=== PATIENT | female | born 1940 | race Caucasian/White ===

== ENCOUNTER 2024-06-26 09:27 | Inpatient (IN) | payer OTHER, SELFPAY ==
[2024-06-23] VITALS (14 sets, daily range): BP systolic 91–140; BP diastolic 39–82; BMI 29.8
[2024-06-23 18:30] LABS: % Basophils 0.5 % (0-2); % Eosinophils 1.8 % (0-6); % Immature Granulocytes 0.5 % (0-0.5); % Lymphocytes 17.3 % (20.5-51.1); % Monocytes 11.6 % (1.7-9.3); % Neutrophils 68.3 % (42.2-75.2); Absolute Eosinophils 0.2 10^3/uL (0-0.7); Absolute Lymphocytes 1.5 10^3/uL (1.2-3.4); Hematocrit 27.6 % (37.0-47.0); Mean Corp Hgb Conc. 32.6 g/dL (33.0-37.0); Mean Corpuscular Hgb 26.4 pg (27.0-31.0); Mean Corpuscular Volume 80.9 fL (81.0-99.0); Nucleated Red Blood Cells % 0 %; Platelet Count 278 10^3/uL (130-400); Red Blood Cell Count 3.41 10^6/uL (4.20-5.40); Red Cell Dist. Width 15.5 % (11.5-14.5); White Blood Cell Count 8.8 10^3/uL (4.8-10.8)
[2024-06-23 18:54] LABS: Troponin I < 0.012 ng/ml
[2024-06-23 18:59] LABS: ALT (SGPT) < 10 U/L (0-35); AST (SGOT) 20 U/L (14-36); Albumin 3.7 g/dl (3.5-5.0); Alkaline Phosphatase 85 U/L (38-126); Blood Urea Nitrogen 33 mg/dl (7-17); Calcium 9.5 mg/dl (8.4-10.2); Carbon Dioxide 28 mmol/L (22-30); Chloride 101 mmol/L (98-107); Estimated Creatinine Clearance 37 ml/min; Glucose 116 mg/dl (70-99); Potassium 3.8 mmol/L (3.5-5.1); Sodium 139 mmol/L (135-145); Total Bilirubin 0.5 mg/dl (0.2-1.3); Total Protein 6.4 g/dl (6.3-8.2); eGFR 44.36
--- NOTE | 2024-06-23 19:01 | ED.GENMED ---
History of Present Illness
General
Chief Complaint: Change Level of Consciousness
Source: patient and family
Exam Limitations: none
Time Seen by Provider: 06/23/24 18:28
Nursing documentation reviewed up to this point in time: agreed with
History of Present Illness
History of Present Illness:
Patient is an 83-year-old female past medical history of hypertension A-fib on Eliquis presents to the ER for evaluation of syncopal episode. Patient was sitting outside on a shaded deck with family when she was not responding and started to vomit.
Family reports it took a couple minutes before she came to. She was incontinent of diarrhea stool which they were not aware of initially. She presents to the ER awake alert in no acute distress she denies any headache now she feels tired. She
remembers sitting eating and simply reports she felt lightheaded. She denies any chest pain or feeling any headache. She denies any headache chest pain now. She denies any recent illness fever chills.
Past History
Past History
ED Past Medical History: HTN and Other
Social History
Tobacco: Non-smoker
Alcohol: Occasional
Personal:
Living: with family
Employment: Retired
Review of Systems
Review of Systems
Allergies reviewed?: Yes
All Other Systems: ROS reviewed and negative except as documented in HPI and ROS
Constitutional: Reports no symptoms; Denies fever, fatigue or chills
Respiratory: Reports no symptoms
Cardiac: Reports syncope; Denies chest pain
ABD/GI: Reports nausea, vomiting and diarrhea; Denies abdominal pain
: Reports no symptoms
Musculoskeletal: Reports no symptoms
Skin: Reports no symptoms
Neurological: Reports no symptoms
Hematologic/Lymphatic: Reports no symptoms
Psychiatric: Reports no symptoms
Phy Exam
General Physical Exam
General Presentation: no apparent distress
General age: appears stated age
General Skin: warm and dry
General Habitus: elderly
General Mental: alert
General Hydration: dry mucous membranes
Cardiovascular Exam
Cardiovascular Exam: irregularly irregular
Pulmonary Exam
Pulmonary Exam: lungs clear and no respiratory distress
Gastrointestinal Exam
Gastrointestinal Exam: normal bowel sounds, non tender, soft and other (brown stool tr heme positive )
Neurological Exam
Neurological Exam: alert and oriented x3
Musculoskeletal Exam
Musculoskeletal Exam: full ROM
Skin Exam
Skin Exam: normal color and warm/dry
Psychiatric Exam
Psychiatric Exam: normal mood/affect
Course
Orders/Labs/Results
Orders:
Orders
06/23/24 Breakfast
Cholesterol Lowering
At Your Request: Full Participation
Does patient need a safe tray?: No
Cholesterol Lowering: Sodium, 2 Gram
06/23/24 18:16
Electrocardiogram (*1) Urgent
Reason for Study: Syncope
EKG- Treatment ONCE
06/23/24 18:25
Complete Blood Count/With Diff Urgent
Comprehensive Metabolic Panel Urgent
Troponin I Urgent
06/23/24 19:00
CT Head W/o Iv Contrast Urgent
Comment:
Reason For Exam: syncopal episode
Straight cath- Treatment ONCE
06/23/24 19:09
UA Reflex to Culture [Urinalysis Reflex To Culture] Urgent
Date Specimen was Collected: 06/23/24
Time Specimen was Collected: 19:08
Urine Microscopic Reflex Cult Urgent
06/23/24 19:40
0.9% Sodium Chloride 500 ml [Nss] 500 ml IV BOLUS
06/23/24 21:35
COVID-19 Antigen Urgent
Source: Nasal Swab
Troponin I Urgent
06/23/24 22:48
Admit/Transfer Patient As Directed
Co-Sign Provider:
Level of Care: Observation services
Assign to:: Telemetry
Physician / Group: Cruz
Diagnosis: Syncope
Reason for Telemetry: Syncope
Date to Stop Telemetry: 06/25/24
Time to Stop Telemetry: 11:00
Code Status As Directed
Resuscitation Status: Full Code
PRN Pain Medication Management As Directed
May give lesser potent ordered pain med per pt: Yes
preference::
Protocol:: Medication orders for pain may be administered in a
manner that supports deferring to patient preference
when the pt is:
- Requesting an ordered lesser potent pain medication.
Least to most potent pain medications are defined
as: acetaminophen < NSAID < tramadol < opioids
(morphine, oxycodone, hydromorphone).
- Requesting a lesser dose of the same medication IF
ORDERED.
- Requesting a less intrusive route of administration
if both routes are prescribed by the provider (PO <
IV).
06/23/24 23:58
Troponin I Q6H
0.9% Sodium Chloride 1000 ml [Nss] 1,000 ml IV 80 mls/hr
Acetaminophen [Tylenol] 650 mg PO Q4HPRN PRN
Bisacodyl [Dulcolax] 10 mg RECTAL C27RPRH PRN
Docusate W/Senna [Senokot-S] 1 tablet PO BIDPRN PRN
Polyethylene Glycol Powder [Miralax] 17 grams PO DAILYPRN PRN
06/23/24 23:58
CARDIOLOGY CONSULT Routine
Consulting Provider: Mamta Rod
Was physician already notified: No
Reason for consult: Syncope with a history of A-fib
Consult Notification Routine
Specialty to Notify: Cardiology
Activity As Directed
Activity Level: Out of Bed-Early Mobility
Orthostatic Vital Signs As Directed
Orthostatic VS Frequency: q8h
Stool for occult blood [Hemetest Stools] As Directed
Vital Signs As Directed
Frequency: Per unit guidelines
06/24/24 05:58
Troponin I Q6H
06/24/24 06:00
Basic Metabolic Panel IN AM
Complete Blood Count/No Diff IN AM
Ferritin IN AM
Iron IN AM
Magnesium IN AM
TSH IN AM
Total Iron Binding IN AM
Vitamin B12 IN AM
06/24/24 08:00
Allopurinol [Zyloprim] 100 mg PO DAILY
Colchicine 0.6 mg PO DAILY
Lisinopril [Zestril] 20 mg PO DAILY
Metoprolol Xl [Toprol Xl] 100 mg PO DAILY
Rivaroxaban [Xarelto] 20 mg PO DAILY
06/24/24 11:58
Troponin I Q6H
06/25/24 11:00
DC Protocol for Telemetry ONCE
Abnormal Lab Results
06/23/24 06/23/24
18:25 19:09
RBC 3.41 L 10^6/uL
(4.20-5.40)
Hgb 9.0 L g/dL
(12.0-16.0)
Hct 27.6 L %
(37.0-47.0)
MCV 80.9 L fL
(81.0-99.0)
MCH 26.4 L pg
(27.0-31.0)
MCHC 32.6 L g/dL
(33.0-37.0)
RDW 15.5 H %
(11.5-14.5)
Absolute Monos (auto) 1.0 H 10^3/uL
(0.1-0.6)
Lymphocytes % 17.3 L %
(20.5-51.1)
Monocytes % 11.6 H %
(1.7-9.3)
BUN 33 H mg/dl
(7-17)
Creatinine 1.2 H mg/dL
(0.6-1.0)
Glucose 116 H mg/dl
(70-99)
Urine Bilirubin 1+ A
(Negative)
Leukocyte Esterase Rfl Trace A
(Negative)
06/23/24 18:25
06/23/24 18:25
Vital Signs
Initial and Last Documented VS:
Initial Vital Signs
BP
91/58
06/23/24 18:14
Last Documented Vital Signs
Temp Pulse Resp BP Pulse Ox
98.0 F 69 20 140/67 95
06/23/24 23:59 06/23/24 23:59 06/23/24 23:59 06/23/24 23:59 06/23/24 23:59
Rn Triage consulted with Physician
Rn Triage consulted with physician?: Yes
Name of Physician Consulted: Jennifer
MDM/Problems Addressed
MDM/Problems Addressed:
Patient is an 83-year-old female who was sitting on initiated deck and had a witnessed syncopal episode associate with vomiting and bowel incontinence by family. Patient presents to the awake alert she complains of feeling very tired. She does
remember sitting eating and remembers feeling lightheaded. She denies any associated chest pain or headache. She denies any chest pain or headache upon arrival. She does appear dehydrated. She denies any recent fever chills she is afebrile here
with a normal white count. Her BUN is elevated at 33 she is dry on exam. Her hemoglobin is 9.0 prior hemoglobin was last from 2014 which was 13.7. On exam patient rectal shows brown stool trace heme positive. She was given 1-1/2 L of fluid
however still feels tired and blood pressure in the 90s. No obvious UTI. Negative COVID. With continued symptoms of fatigue , hypertension and not feeling back to normal we will adm
*Radiology
Radiology exam reviewed: radiology read reviewed
*Pulse Oximetry
Patient hypoxic: no
*EKG
Heart Rate: 52
Rate: bradycardiac
Rhythm: a-fib
*Critical Care Note
Total Time (30-74mins, 75-104mins- exclusive of procedures): Not Applicable
ED Attending Note
-
Portions of this chart may have been created with voice recognition software.� Occasional wrong word or��sound alike� substitutions may have occurred due to the inherent limitations of voice recognition software.
Discharge Plan
Departure
Patient Disposition: Admit
Date of Disposition: 06/23/24
Time of Disposition: 22:14
Admit to: Telemetry
Admit to doctor: hospitalist
Presentation/result/management discussed w/ accepting MD/DO: Hospitalist
Patient with high blood pressure during this ER visit?: No
Condition: Fair
Covid-19: Not Applicable
Discharge Problem:
Syncope, Acute hypotension
Interventions
Interventions:
*Risk Screen - Suicide Last Done: 06/23/24 18:19
*General Assessment Last Done: 06/23/24 18:19
*Neglect/Abuse Screening Last Done: 06/23/24 18:19
*ED COVID-19 Vaccine History Last Done: 06/23/24 18:19
*Nursing Disposition Last Done: 06/24/24 00:00
ED- Cardiac Assessment Last Done: 06/23/24 18:21
ED- Neurological Assessment Last Done: 06/23/24 18:21
ED-Psychological Assessment Last Done: 06/23/24 18:21
ED- Pulmonary Assessment Last Done: 06/23/24 18:21
Discharge Date and Time
Discharge Date/Time: 06/24/24 00:01
[2024-06-23 19:14] LABS: Urine Albumin Negative (Neg - Trace); Urine Bilirubin 1+ (Negative); Urine Character Clear (Clear); Urine Color Yellow; Urine Glucose Negative (Negative); Urine Ketone Negative (Negative); Urine Leukocyte Trace (Negative); Urine Nitrite Negative (Negative); Urine Occult Blood Negative (Negative); Urine Specific Gravity 1.025 (<1.030); Urine Urobilinogen 1+ (Neg - 1+)
[2024-06-23 19:28] LABS: Urine Red Blood Cell 0-2 /HPF (0-2)
[2024-06-23] MEDS: NSS 500 IV (19:41)
[2024-06-23 22:01] LABS: COVID-19 Antigen Negative (Negative)
[2024-06-23 22:07] LABS: Troponin I < 0.012 ng/ml
--- NOTE | 2024-06-23 22:23 | HPS.HSE ---
Family Physician
-
Family Physician: Jesus Alberto Merchant
Chief Complaint
-
Syncope
History of Present Illness
83-year-old female with history of A-fib anticoagulated with Eliquis and recently have a gout flareup and she was started on allopurinol and colchicine which she started 4 days ago, presented to the hospital with the daughter and son after had a
witnessed syncopal episode while at a family gathering, she that she was sitting on the back porch which has been initiated and have ventilation and she was not feeling hot at all, while she was eating and talking to the grandson, that the last
thing she remembered this family noticed she had some unresponsive episode lasted 3 to 4-minute and she gradually came around after one of the [id number] is a nurse tapped on her, and the patient had no recollection of the event and there was
no seizure-like activity witnessed look like patient had an episode of nonbloody vomiting as well, she feels she is drinking enough but she looks dry and dehydrated, and after the event she had an episode of loose stool. Denies any chest pain or
shortness of breath or palpitation or any cough or congestion or any weakness or numbness in extremities.
Denies any bleeding event or change in stool or urine color.
Looking at the archive the last time we have in the system her hemoglobin was around 13 today is 9 and she had a blood work recently in 2 weeks ago and was told by her primary care everything looks good. The daughter and son did not get the record
of her recent blood work tomorrow.
She is awake, alert and oriented x 3 hold appropriate conversation, denies any particular complaint currently accompanied by son and daughter at the bedside
Medical History
Past Medical History
Past Medical History: Reports Other
Additional Past Medical History:
Past medical history Reviewed:
Gout
Hypertension
Breast cancer
A-fib anticoagulated on Xarelto
Social history: Lives alone, no smoking or alcohol use. And she is independent.
Family history: Reviewed and noncontributory
Past Surgical History: Reports Other
Social History
Unable to obtain full social history at this time due to: Other
Employment: Other
Family History
Family History: Other
Allergies / Home Medications
Allergies reflects when Allergies were last updated in [facility].
Home Medications with original date entered in [facility]
Allergy/Medication List:
Allergies
Allergy/AdvReac Type Severity Reaction Status Date / Time
No Known Drug Allergies Allergy Unknown Verified 11/29/14 04:35
Home Medications
allopurinol 100 mg tablet 100 mg PO DAILY 11/29/14
anastrozole 1 mg tablet 1 mg PO DAILY 11/29/14
cholecalciferol (vitamin D3) 25 mcg (1,000 unit) tablet (Vitamin D3) 1,000 unit PO DAILY 11/29/14
lisinopril 20 mg tablet 20 mg PO DAILY 11/29/14
metoprolol succinate 100 mg tablet,extended release 24 hr 100 mg PO DAILY 11/29/14
rivaroxaban 20 mg tablet (Xarelto) 20 mg PO DAILY 11/29/14
aspirin 81 mg tablet,delayed release 81 mg PO DAILY ##0 12/01/14
atorvastatin 20 mg tablet 20 mg PO QPM ##30 12/01/14
Review of Systems
-
A 12 point ROS was completed and negative except as noted: Yes
Physical Exam
Vital Signs
Vital Signs
Temp Pulse Resp BP Pulse Ox
98.2 F 76 18 94/66 97
06/23/24 18:17 06/23/24 22:00 06/23/24 22:00 06/23/24 22:00 06/23/24 22:03
physical exam:
General: Awake, alert and oriented x3, not in distress and holds appropriate conversation.
HEENT: No active discharge, ecchymosis or bruising, dry lips, tongue and mucous membrane.
Eyes: No discharge or red conjunctiva, no nystagmus, pupils are reactive and equal
Neck:Supple, no JVD no bruit no goiter.
Respiratory: Normal AP contour and diameter, normal chest wall movement, normal respiratory effort, no respiratory distress,
Lungs: Good air entry bilaterally, no wheezing or rhonchi, no rales or crackles
Heart: S1, S2 regular, normal rate, no added sound.
Gastrointestinal: Positive bowel sounds, soft, nontender, no guarding or rigidity or organomegaly
Musculoskeletal: , no chest wall abnormality or tenderness. All joints and extremities have good range of motion, no muscle tenderness or any joint swelling or tenderness.
Extremities: No pitting edema, good peripheral pulses, good range of motion
Skin: Warm and dry, no ulceration, normal color.
Neurological: Awake, alert and oriented x3, no facial droop, , speech clear and comprehensive, good muscle tone, moves extremities freely
Psychiatric: Normal mood, normal thought and judgment, normal affect,
Physical Exam
General: Other
Laboratory Results
-
06/23/24 18:25
06/23/24 18:25
Laboratory Results
Total Bilirubin 0.5 mg/dl (0.2-1.3) 06/23/24 18:25
AST 20 U/L (14-36) 06/23/24 18:25
ALT < 10 U/L (0-35) 06/23/24 18:25
Alkaline Phosphatase 85 U/L (38-126) 06/23/24 18:25
Troponin I < 0.012 ng/ml 06/23/24 21:35
CT head:
No acute intracranial abnormality noted.
Global parenchymal volume loss with sequelae of severe small vessel ischemic disease.
EKG show atrial fibrillation with slow ventricular rate) 52, QTc 390 normal axis otherwise no acute abnormality
Data Reviewed
-
CT Scan: Report Reviewed by me, Discussed with Patient and Discussed with Family
Lab Data: Labs Reviewed by me, Discussed with Patient and Discussed with Family
Old Records: Reviewed
Impression/Plan
-
IMPRESSION:
83-year-old female presented to the hospital after a witnessed syncopal episode, possibly related to vasovagal and dehydration while other causes including arrhythmia specially in the midst of the A-fib need to be considered.
Syncope, likely vasovagal and dehydration related while other causes need to be considered.
Cardiac monitoring
IV fluid
Orthostatic vital sign check
Cardiology consult, she had a history of the A-fib.
Check TSH
Cardiac enzyme
Continue metoprolol while hold HCTZ as she takes lisinopril HCTZ combination 20/25 mg.
Anemia: Last a lot of blood work was in 2014 in the system and hemoglobin was fine, patient denies bleeding event
She is on Xarelto
Had a blood work 2 weeks ago and she was told everything looks fine but does not know exactly her hemoglobin.
Rectal blood stool
Iron panel
Recheck lab
Diet regular bring the record of her recent blood work and could be addressed accordingly.
History of A-fib:
Rate controlled
On Toprol 100 mg daily
Monitor heart rate
Continue Xarelto.
Elevated creatinine: Likely secondary to dehydration as meantime within of the baseline
IV fluid
Recheck
Gout: Recently had a attack and was given a week course of prednisone and on allopurinol and colchicine,
Continue colchicine
Allopurinol 100 daily
No evidence of acute gout currently
All discussed with the patient and the family in detail and expressed understanding
CODE STATUS full code
DVT prophylaxis is Xarelto
All the medication reconciled with the patient and the family as they have all the bottles with him.
[2024-06-24] VITALS (8 sets, daily range): BP systolic 103–140; BP diastolic 42–67; PULSE 66–87; BMI 29.0
[2024-06-24] MEDS: NSS 1000 IV ×2 (00:24→13:14)
[2024-06-24 01:17] LABS: Troponin I 0.012 ng/ml
--- NOTE | 2024-06-24 01:19 | PTCARENOTE ---
Received pt from ER at 0000. AAOx3, VSS. Pt able to stand and pivot from stretcher to bed. Oriented to room, call johnson and plan of care.
[2024-06-24 06:53] LABS: Hematocrit 25.1 % (37.0-47.0); Hemoglobin 8.1 g/dL (12.0-16.0); Mean Corp Hgb Conc. 32.3 g/dL (33.0-37.0); Mean Corpuscular Hgb 26.9 pg (27.0-31.0); Mean Corpuscular Volume 83.4 fL (81.0-99.0); Mean Platelet Volume 10.8 fL (7.4-10.4); Platelet Count 231 10^3/uL (130-400); Red Blood Cell Count 3.01 10^6/uL (4.20-5.40); Red Cell Dist. Width 15.4 % (11.5-14.5); White Blood Cell Count 8.1 10^3/uL (4.8-10.8)
[2024-06-24 07:15] LABS: Troponin I < 0.012 ng/ml
[2024-06-24 07:25] LABS: Blood Urea Nitrogen 31 mg/dl (7-17); Calcium 9.1 mg/dl (8.4-10.2); Carbon Dioxide 28 mmol/L (22-30); Chloride 103 mmol/L (98-107); Estimated Creatinine Clearance 37 ml/min; Glucose 91 mg/dl (70-99); Iron 40 ug/dl (37-170); Magnesium 1.7 mg/dl (1.6-2.3); Potassium 3.8 mmol/L (3.5-5.1); Sodium 139 mmol/L (135-145); eGFR 44.36
[2024-06-24 07:33] LABS: Percent Saturation 12 % (20-50); Total Iron Binding Capacity 332 ug/dl (265-497)
[2024-06-24 08:06] LABS: TSH 0.82 uIU/ml (0.47-4.68)
--- NOTE | 2024-06-24 08:08 | CON.CAR ---
Addendum entered and electronically signed by Azar Mayen MD 06/24/24 11:26:
I saw and examined the patient.
The PUMP HOUSE TECHNICIAN or PA's note was reviewed and I agree with the note.
Comment: General: Well developed, well nourished in NAD.
Neck: Supple, no JVD, HJR, carotids +2 B/L, no bruits bilaterally.
Heart: Non displaced PMI, Irreg, no murmurs, No S3, S4, no rubs.
Lungs: Clear to auscultation bilaterally, no wheeze, rhonchi, rubs bilaterally,
normal expiratory phase.
Abdomen: Normal bowel sounds, soft, non-tender, non-distended.
Extremities: No clubbing, cyanosis or edema bilaterally.
Neuro: Grossly nonfocal, awake, alert and oriented x3.
Isabella has a history of permanent atrial fibrillation on Xarelto, hypertension, gout, breast cancer. She presents with syncope. She was sitting at a table and was noted to be unresponsive for 3 to 4 minutes. Reportedly she had nausea at that
time as well. She had nonbloody vomiting afterwards as well as diarrhea. In the ER she was hypotensive with blood pressure of 91/58 with hemoglobin of 9.0 and a creatinine of 1.2 and was admitted. She denies any chest pain, short of breath,
palpitations. Of note she had a similar episode several years ago felt to be due to dehydration
Current event was likely due to vasovagal etiology. Will check echocardiogram. Continue to follow on monitor. Workup of anemia is in progress. Discussed with family in detail at bedside.
Addendum entered and electronically signed by STEWART Hutchinson 06/24/24 11:19:
rec'd records from Dr Riggs (primary enrollment management manager). Pt last seen in office 10/03/23. Known permanent afib. Was stable from CV standpoint at that time and no changes made to medical regimen.
Echo 08/05/22:
EF normal LV size, 60-65%
RV midly dilated, nl RV fxn
LA 4.0cm
mod MR
mild-mod TR, RVSP 50-55
AV sclerotic, mild AI
Asc aorta 3.7 cm
Original Note:
Consultation
Consultation Request
Date/Time Consultation Requested: 06/23/24, 23:58
Date/Time Consultation Performed: 06/24/24, 08:09
Requesting Provider: Silvia Arroyo MD
Performing Provider: STEWART Hutchinson/ Paul Espinosa MD
Reason for Consultation: syncope w/ h/o afib
Medical History
-
Chief Complaint: syncope
History of Present Illness:
HPI:
83 year old female with PMH permanent atrial fibrillation (on Xarelto), HTN, gout, breast CA s/p lumpectomy and radiation, who presents to the ER following a witnessed syncopal episode. She was sitting at a table outside, eating and talking to her
grandson when she was noted to become unresponsive, lasting 3-4 minutes. She gradually regained consciousness after family tapped on her. There was no seizure-like activity and no fall. She had no recollection of the event. She had an episode of
nonbloody vomiting as well diarrhea. On arrival to the ED she was noted to be hypotensive, BP 91/58. ER evaluation: troponin <0.012 x 4 readings, Hgb initially 9.0, repeat 8.1, creat 1.2.
She had a similar episode about 10 years ago and was evaluated at [facility] - thought to be due to dehydration
Pt denies chest pain, shortness of breath, palpitations, lightheadedness, edema, PND, orthopnea.
PMH:
permanent atrial fibrillation (on Xarelto), seen on EKG at in 2014
HTN
recent gout flare - R great toe-treated with steroids, allopurinol, colchicine
COVID- 10/21- 1 week hospitalization at [facility]
anemia
breast CA s/p lumpectomy and radiation 2013
No known h/o IA, CAD, heart failure, CVA
Past Medical History
Past Medical History: Other (see HPI)
Past Surgical History: Gynecological (lumpectomy, lymph node removal 01/2014, with radiation)
Social History
Alcohol: Occasional (1/2 glass wine with dinner once a week)
Living: Alone
Employment: Not Employed
Family History
Family History: Other (parents both had Afib, Brother had CAD s/p CABG ())
Allergies / Home Medications
Allergy/AdvReac Type Severity Reaction Status Date / Time
No Known Drug Allergies Allergy Unknown Verified 11/29/14 04:35
�Medication �Instructions �Recorded �Confirmed �Type
allopurinol 100 mg tablet 100 mg PO DAILY 11/29/14 11/29/14 History
anastrozole 1 mg tablet 1 mg PO DAILY 11/29/14 11/29/14 History
cholecalciferol (vitamin D3) 25 1,000 unit PO DAILY 11/29/14 11/29/14 History
mcg (1,000 unit) tablet (Vitamin
D3)
lisinopril 20 mg tablet 20 mg PO DAILY 11/29/14 11/29/14 History
metoprolol succinate 100 mg 100 mg PO DAILY 11/29/14 11/29/14 History
tablet,extended release 24 hr
rivaroxaban 20 mg tablet (Xarelto) 20 mg PO DAILY 11/29/14 11/29/14 History
aspirin 81 mg tablet,delayed 81 mg PO DAILY ##0 12/01/14 Rx
release
atorvastatin 20 mg tablet 20 mg PO QPM ##30 12/01/14 Rx
Review of Systems
-
History Source: Patient and Family
All other systems: Negative unless noted
Physical Exam
Vital Signs
Temp Pulse Resp BP Pulse Ox
97.4 F 82 18 122/60 97
06/24/24 03:40 06/24/24 03:40 06/24/24 03:40 06/24/24 03:40 06/24/24 03:40
GEN: lying in bed, No distress, awake, Ox3
HEENT: supple, anicteric, mmm
Neck: no JVD, no bruits
LUNGS: CTA, no wheezes/rales
CV: irreg, irreg, S1/S2, no murmur
ABD: soft, BS+, NT/ND
EXT: No edema
NEURO: Gross non-focal
SKIN: No rash
Lab Results
06/24/24 06:33
06/24/24 06:33
Troponin I < 0.012 ng/ml 06/24/24 06:33
Impression / Plan
-
PCP:eJsus Alberto Merchant MD
Center Machine Operator: Adalid Riggs MD
Impression:
syncope, presented to ED 06/23/24
hypotension upon presentation
vomitting, diarrhea x 1
permanent atrial fibrillation (on Xarelto), seen on EKG at in 2014
anemia, Hgb 8.1 06/24/24
elevated creatinine-not clear if FRANNIE vs CKD.
HTN
gout-recently treated with steroids, allopurinol, colchicine
COVID- 10/21- 1 week hospitalization at [facility]
breast CA s/p lumpectomy and radiation 2013
Echo 12/01/14: nl LV size and fxn, EF 55-60%, nl RV size and fxn, mild dil LA, mild-mod MR, mild TR, PAP 41-46
Echo fall 2022 at [facility] - will obtain records
Plan:
83 year old female with PMH permanent atrial fibrillation (on Xarelto), HTN, gout, breast CA s/p lumpectomy and radiation, who presents to the ER following a witnessed syncopal episode. She was sitting at a table talking to her grandson when she
was noted to become unresponsive, lasting 3-4 minutes. She gradually regained consciousness after family tapped on her. There was no seizure-like activity and no fall. She had no recollection of the event. She had one episode of nonbloody
vomiting as well one episode of diarrhea. On arrival to the ED she was noted to be hypotensive, BP 91/58. ER evaluation: troponin <0.012 x 4 readings, Hgb initially 9.0, repeat 8.1, creat 1.2.
She had a similar syncopal episode about 10 years ago and was evaluated at [facility] - thought to be due to dehydration
EKG reviewed by me: atrial fibrillation
telemetry reviewed by me: atrial fibrillation 69-89 bpm
Syncope:
mildly hypotensive on arrival, but BPs improving
no significant slow afib on telemetry
ruled out IA
no significant murmurs on exam, will obtain most recent echo and other records from primary enrollment management manager
Given COVID history in September, will repeat echo in setting of syncopal episode
Hgb initially 9.0 but 8.1 on repeat - would check hemocult and consider iron studies. May need GI eval. in future.
pt reports she had previously been started on iron supplementation after 10/21 hospitalization at [facility] where she was also anemic(had also rec'd iron infusions). Stopped iron supplement in December due to constipation
Afib:
rate controlled on Metoprolol
anticoagulation with no bleeding/bruising concerns
Gout:
recent treatment for R great toe gout including steroid taper, allupurinol, colchinicine, symptoms now improved.
Given improvement in symptoms, would consider stopping colchicine
HTN:
BPs controlled
HCTZ component of Lisinopril HCT stopped upon admission due to hypotension
monitor BMP
Elevated creatinine:
creat 1.2. Unclear if FRANNIE or CKD. Had labs checked through her PCP recently and routinely. Will obtain results. For now agree with holding HCTZ component of Lisinopril HCT.
Data Reviewed
-
EKG: Tracing Personally Visualized and interpreted (atrial fibrillation, HR 52 bpm)
[2024-06-24] MEDS: DESENEX/MITRAZOL/ZEASORB 1 APPLIC TOPICAL ×2 (11:14→19:29)
[2024-06-24] MEDS: TOPROL XL 100 MG PO (11:15)
[2024-06-24] MEDS: ZESTRIL 20 MG PO (11:16)
[2024-06-24] MEDS: XARELTO 20 MG PO (11:16)
--- NOTE | 2024-06-24 11:38 | W.PN.HOSP.TC ---
Today's Communication/Plan
-
IVF
Monitor on tele
ECHO
PT/OT
IV iron
FOBT pending
Assessment / Plan
Assessment / Plan
83-year-old female presented to the hospital after a witnessed syncopal episode, possibly related to vasovagal and dehydration while other causes including arrhythmia specially in the midst of the A-fib need to be considered.
Syncope, likely vasovagal and dehydration versus arrhythmia
Cardiac monitoring
IV fluid
Orthostatic vital sign check and found to be negative.
Troponin negative.
Intermittent bradycardia on telemetry otherwise heart rate found to be normal sinus rhythm
Echocardiogram
Appreciate cardiology recs
Anemia: Last a lot of blood work was in 2014 in the system and hemoglobin was fine, patient denies bleeding event
She is on Xarelto
Had a blood work 2 weeks ago and she was told everything looks fine but does not know exactly her hemoglobin.
Rectal blood stool
Iron panel found to be low. Start IV iron.
Further workup can be managed and follow-up as outpatient unless with significant drop.
History of A-fib:
Rate controlled
On Toprol 100 mg daily
Monitor heart rate
Continue Xarelto.
Elevated creatinine: Likely secondary to dehydration versus at baseline.
IV fluid
Trend for now.
Gout: Recently had a attack and was given a week course of prednisone and on allopurinol and colchicine,
Continue colchicine
Allopurinol 100 daily
No evidence of acute gout currently
All discussed with the patient and the family in detail and expressed understanding
CODE STATUS full code
DVT prophylaxis is Xarelto
Discussed extensively with patient family member at bedside in detail.
PT/OT
Anticipated Discharge: Within 24 hours
Subjective/Interval History
-
Date of Service: June 24, 2024
Feeling tired
Denies lightheaded dizziness chest pain or palpitation
Objective Data
-
Labs:
Laboratory Results
06/24/24
06:33
WBC 8.1
Hgb 8.1 L
Hct 25.1 L
Plt Count 231
Sodium 139
Potassium 3.8
Chloride 103
Carbon Dioxide 28
BUN 31 H
Creatinine 1.2 H
Glucose 91
Calcium 9.1
Vital Signs:
Vital Signs
Temp Pulse Resp BP Pulse Ox
97.4 F 82 18 122/60 97
06/24/24 03:40 06/24/24 03:40 06/24/24 03:40 06/24/24 03:40 06/24/24 03:40
I&O
06/23/24 06/24/24 06/25/24
06:59 06:59 06:59
Intake Total 240 / 240
Balance 240 / 240
Physical Exam
-
General: Well Developed and No Apparent Distress
HEENT: Normocephalic, Atraumatic and Moist Mucous Membranes
Respiratory: Clear to Auscultation
Cardiac: Regular Rhythm and S1/S2; Negative Murmur, Rub or Gallop
GI: Soft, Nontender, Nondistended and Normal Bowel Sounds; Negative Organomegaly
Rectal: Deferred by Provider
Musculoskeletal: No Clubbing, No Cyanosis and No Edema
Skin: Negative Rash
Neuro: Awake, AO x 3, No Motor Deficits and Nonfocal/Grossly Intact
Psych: Calm
Data Reviewed
-
Total Time Spent with Patient (in minutes): 56
[2024-06-24 12:07] LABS: Vitamin B12 202 pg/ml (239-931)
[2024-06-24] MEDS: ZYLOPRIM 100 MG PO (13:14)
[2024-06-24] MEDS: VITAMIN B-12 1000 MCG PO (13:14)
--- NOTE | 2024-06-24 13:49 | CM ---
foreman/project manager reviewed patient's chart and patient was admitted under OBS, SPIVEY letter provided and signed by patient, patient lives alone in a 2 story home with bed and bathroom are on the 1st floor. Patient is independent with adl's and uses a
walker or cane with ambulation, no dme.
Pharmacy: [facility]
PCP: Dr. Merchant
Plan; Home when stable.
[2024-06-24] MEDS: FERRLECIT 110 MG IV (15:53)
[2024-06-25] VITALS (8 sets, daily range): BP systolic 84–132; BP diastolic 50–80; PULSE 66–104
[2024-06-25 08:17] LABS: % Basophils 0.4 % (0-2); % Eosinophils 3.1 % (0-6); % Immature Granulocytes 0.3 % (0-0.5); % Monocytes 11.8 % (1.7-9.3); % Neutrophils 71.4 % (42.2-75.2); Absolute Eosinophils 0.2 10^3/uL (0-0.7); Absolute Monocytes 0.9 10^3/uL (0.1-0.6); Absolute Neutrophils 5.3 10^3/uL (1.4-6.5); Hematocrit 25.2 % (37.0-47.0); Hemoglobin 7.9 g/dL (12.0-16.0); Mean Corp Hgb Conc. 31.3 g/dL (33.0-37.0); Mean Corpuscular Hgb 26.5 pg (27.0-31.0); Mean Corpuscular Volume 84.6 fL (81.0-99.0); Mean Platelet Volume 10.9 fL (7.4-10.4); Nucleated Red Blood Cells % 0 %; Platelet Count 193 10^3/uL (130-400); Red Blood Cell Count 2.98 10^6/uL (4.20-5.40); Red Cell Dist. Width 15.4 % (11.5-14.5); White Blood Cell Count 7.4 10^3/uL (4.8-10.8)
[2024-06-25 08:55] LABS: Blood Urea Nitrogen 23 mg/dl (7-17); Calcium 9.3 mg/dl (8.4-10.2); Carbon Dioxide 27 mmol/L (22-30); Chloride 105 mmol/L (98-107); Estimated Creatinine Clearance 40 ml/min; Glucose 81 mg/dl (70-99); Potassium 3.8 mmol/L (3.5-5.1); Sodium 141 mmol/L (135-145); eGFR 49.24
[2024-06-25] MEDS: ZESTRIL PO (09:43)
--- NOTE | 2024-06-25 09:53 | CM ---
CM reviewed chart. Pt admitted s/p syncopal episode, ECHO completed. Cards consult pending, IV iron and IVF, PT/OT ordered and pending. If ST SNF is rec'd, pt will require a repeat PT and OT eval w/in 24hrs of discharge for insurance auth.
CM will continue to follow to ensure a safe and time discharge.
[2024-06-25] MEDS: TOPROL XL PO (09:57)
[2024-06-25] MEDS: XARELTO 20 MG PO (10:06)
[2024-06-25] MEDS: NSS 1000 IV (10:07)
[2024-06-25] MEDS: DESENEX/MITRAZOL/ZEASORB 1 APPLIC TOPICAL ×2 (10:07→19:45)
[2024-06-25] MEDS: VITAMIN B-12 1000 MCG PO (10:07)
--- NOTE | 2024-06-25 10:08 | W.PN.CARDCBS ---
Addendum entered and electronically signed by Azar Mayen MD 06/25/24 15:01:
I saw and examined the patient.
The ENGINEERING RECRUITER or PA's note was reviewed and I agree with the note.
Comment: General: Well developed, well nourished in NAD.
Neck: Supple, no JVD, HJR, carotids +2 B/L, no bruits bilaterally.
Heart: Non displaced PMI, irregular, no murmurs, No S3, S4, no rubs.
Lungs: Clear to auscultation bilaterally, no wheeze, rhonchi, rubs bilaterally,
normal expiratory phase.
Abdomen: Normal bowel sounds, soft, non-tender, non-distended.
Extremities: No clubbing, cyanosis or edema bilaterally.
Neuro: Grossly nonfocal, awake, alert and oriented x3.
Lisinopril remains on hold and patient getting IV fluids for hypotension. Episode of syncope felt to be vasovagal with stable echocardiogram. Hemoglobin has dropped to 7.9 and may need GI evaluation given chronic anticoagulation. Discussed with
patient and family in detail at bedside.
Original Note:
Today's Communication / Plan
-
-echo stable
-IVF for hypotension
-afib remains rate controlled
-heme check stool
-hold Lisinopril for hypotension
Impression / Plan
-
PCP:Jesus Alberto Merchant MD
Heavy Mobile Equipment Repairer: Adalid Riggs MD
Impression:
syncope, presented to ED 06/23/24
hypotension
permanent atrial fibrillation (on Xarelto)
anemia, Hgb 8.1 06/24/24, 7.9 06/25/24
elevated creatinine-not clear if FRANNIE vs CKD, but improving, 1.1 06/25/24
HTN
gout-recently treated with steroids, allopurinol, colchicine
COVID- 10/21- 1 week hospitalization at [place]
breast CA s/p lumpectomy and radiation 2013
Echo 12/01/14: nl LV size and fxn, EF 55-60%, nl RV size and fxn, mild dil LA, mild-mod MR, mild TR, PAP 41-46
Echo fall 2021 at [facility] - normal LV fxn EF 60-65%, mod MR, mild-mod TR, RVSP 50-55, mild AI
ECHO 06/24/24: EF60-65%, mild-mod MR, mild-mod TR
Plan:
Overnight events reviewed- BP dropped to 84/50, hemoglobin trending down. Pt c/o fatigue. No CP, SOB, dizziness, palps, edema, PND, orthopnea.
telemetry reviewed by me: atrial fibrillation, no significant pauses
Syncope:
no further syncopal episodes
BP low this a.m. 84/50 and pt currently receiving 1L NSS
Lisinopril on hold, HCTZ on hold
no significant slow afib on telemetry
ruled out MT
Echo 06/24/24 EF 60-65%, mild-mod MR and TR-stable from prior echo 2021 at [facility].
Anemia - Hgb initially 9.0 but 8.1 on repeat 06/24 and 7.9 06/25. - hemocult ordered. Iron studies show low ferritin and iron saturation - started iron infusion daily x 5 days and consider iron studies.
If heme + stool, consult GI for evaluation. Pt reports last colonoscopy was >20 yrs ago.
pt reports she had previously been started on iron supplementation after 10/21 hospitalization at [place] where she was also anemic(had also rec'd iron infusions). Stopped iron supplement in December due to constipation
Afib:
rate controlled on Metoprolol-med held as of this morning due to hypotension
anticoagulation with Xarelto - monitoring hemoglobin closely and anemia w/u in progress
Gout:
recent treatment for R great toe gout including steroid taper, allopurinol, colchinicine, symptoms now improved.
Given improvement in symptoms, would consider stopping colchicine
HTN:
BPs lower today and Lisinopril on hold. Receiving IVF.
HCTZ component of Lisinopril HCT stopped upon admission due to hypotension
continue to monitor BMP
BPs not orthostatic
Elevated creatinine:
creatinine improving, 1.1 06/25, was 1.2 06/24.
Likely due to dehydration vs baseline.
83 year old female with PMH permanent atrial fibrillation (on Xarelto), HTN, gout, breast CA s/p lumpectomy and radiation, who presents to the ER following a witnessed syncopal episode. She was sitting at a table talking to her grandson when she
was noted to become unresponsive, lasting 3-4 minutes. She gradually regained consciousness after family tapped on her. There was no seizure-like activity and no fall. She had no recollection of the event. She had one episode of nonbloody
vomiting as well one episode of diarrhea. On arrival to the ED she was noted to be hypotensive, BP 91/58. ER evaluation: troponin <0.012 x 4 readings, Hgb initially 9.0, repeat 8.1, creat 1.2.
Progress Note - Heavy Mobile Equipment Repairer
Subjective
Date of Service: June 25, 2024
Objective
Labs:
06/25/24 07:38
06/25/24 07:38
Labs
Hgb 7.9 g/dL (12.0-16.0) L 06/25/24 07:38
Hct 25.2 % (37.0-47.0) L 06/25/24 07:38
Plt Count 193 10^3/uL (130-400) 06/25/24 07:38
Sodium 141 mmol/L (135-145) 06/25/24 07:38
Potassium 3.8 mmol/L (3.5-5.1) 06/25/24 07:38
BUN 23 mg/dl (7-17) H 06/25/24 07:38
Creatinine 1.1 mg/dL (0.6-1.0) H 06/25/24 07:38
Glucose 81 mg/dl (70-99) 06/25/24 07:38
Troponins
06/23/24 06/23/24 06/24/24
18:25 21:35 00:31
Troponin I < 0.012 < 0.012 0.012
06/24/24 06/24/24
06:33 11:58
Troponin I < 0.012 Cancelled
Vital Signs and I&O:
Vital Signs
Temp Pulse Resp BP Pulse Ox
97.6 F 76 18 90/50 95
06/25/24 07:00 06/25/24 07:00 06/25/24 07:00 06/25/24 09:57 06/25/24 07:00
Vital Signs
Temp Pulse Resp BP Pulse Ox
97.6 F 76 18 90/50 95
06/25/24 07:00 06/25/24 07:00 06/25/24 07:00 06/25/24 09:57 06/25/24 07:00
Intake & Output
06/23/24 06/24/24 06/25/24 06/26/24
06:59 06:59 06:59 06:59
Intake Total 240 / 240 1939
Balance 240 / 240 1939
Physical Exam
Physical Exam
GEN: No distress, awake, Ox3, pale
HEENT: supple, anicteric, mmm
LUNGS: CTA, no wheezes/rales
CV: irreg, irreg, S1/S2, 1/6 syst LLSB, no murmur
ABD: soft, BS+, NT/ND
EXT: No edema
NEURO: Gross non-focal
SKIN: No rash
--- NOTE | 2024-06-25 12:35 | W.PN.HOSP.TC ---
Today's Communication/Plan
-
Restarted IV fluids
Lisinopril discontinued
Blood pressure improving
Continue with IV iron and B12 supplementation
FOBT pending
Assessment / Plan
Assessment / Plan
83-year-old female presented to the hospital after a witnessed syncopal episode, possibly related to vasovagal and dehydration while other causes including arrhythmia specially in the midst of the A-fib need to be considered.
Syncope, likely vasovagal and dehydration versus arrhythmia
Cardiac monitoring
Orthostatic vital sign check and found to be negative.
Troponin negative.
Intermittent bradycardia on telemetry otherwise heart rate found to be normal sinus rhythm
Echocardiogram noted.
Blood pressure 84/50 this morning and lisinopril discontinued. IV fluid aggressive restarted.
Appreciate cardiology recs
Normocytic anemia
She is on Xarelto
Rectal blood stool pending. Denies any melanotic or blood in stool or urine.
Iron panel found to be low. Start IV iron. B12 level low and started on supplementation.
Further workup can be managed and follow-up as outpatient unless with significant drop.
History of A-fib:
Rate controlled
On Toprol 100 mg daily-was held as blood pressure 84/50
Monitor heart rate
Continue Xarelto.
Elevated creatinine: Likely secondary to dehydration versus at baseline.
IV fluid
Trend for now.
DC lisinopril
Gout: Recently had a attack and was given a week course of prednisone and on allopurinol and colchicine,
Allopurinol 100 daily
No evidence of acute gout currently. Colchicine discontinued and patient does not want to take it
All discussed with the patient and the family in detail and expressed understanding
CODE STATUS full code
DVT prophylaxis is Xarelto
Discussed extensively with patient family member at bedside in detail.
PT/OT home health
Anticipated Discharge: Within 24 hours
Subjective/Interval History
-
Date of Service: June 25, 2024
states feels tired
no lightheadedness or dizziness
BP soft this morning
Objective Data
-
Labs:
Laboratory Results
06/25/24
07:38
WBC 7.4
Hgb 7.9 L
Hct 25.2 L
Plt Count 193
Sodium 141
Potassium 3.8
Chloride 105
Carbon Dioxide 27
BUN 23 H
Creatinine 1.1 H
Glucose 81
Calcium 9.3
Vital Signs:
Vital Signs
Temp Pulse Resp BP Pulse Ox
98.0 F 78 18 105/62 95
06/25/24 10:59 06/25/24 10:59 06/25/24 10:59 06/25/24 10:59 06/25/24 10:59
I&O
06/24/24 06/25/24 06/26/24
06:59 06:59 06:59
Intake Total 240 / 240 1939
Balance 240 / 240 1939
Physical Exam
-
General: Well Developed and No Apparent Distress
HEENT: Normocephalic, Atraumatic and Moist Mucous Membranes
Respiratory: Clear to Auscultation
Cardiac: Regular Rhythm and S1/S2; Negative Murmur, Rub or Gallop
GI: Soft, Nontender, Nondistended and Normal Bowel Sounds; Negative Organomegaly
Rectal: Deferred by Provider
Musculoskeletal: No Clubbing, No Cyanosis and No Edema
Skin: Negative Rash
Neuro: Awake, AO x 3, No Motor Deficits and Nonfocal/Grossly Intact
Psych: Calm
Data Reviewed
-
Total Time Spent with Patient (in minutes): 56
[2024-06-25] MEDS: SENOKOT-S 1 TABLET PO (15:34)
[2024-06-25] MEDS: MIRALAX 17 GRAMS PO (15:34)
[2024-06-25] MEDS: ZYLOPRIM 100 MG PO (15:34)
[2024-06-25] MEDS: FERRLECIT 110 MG IV (15:34)
[2024-06-26 03:30] VITALS: BP 112/53
[2024-06-26 07:04] LABS: % Basophils 0.5 % (0-2); % Eosinophils 1.9 % (0-6); % Immature Granulocytes 0.6 % (0-0.5); % Lymphocytes 9.4 % (20.5-51.1); % Monocytes 12.2 % (1.7-9.3); % Neutrophils 75.4 % (42.2-75.2); Absolute Basophils 0.1 10^3/uL (0-0.2); Absolute Eosinophils 0.2 10^3/uL (0-0.7); Absolute Immature Granulocytes 0.1 10^3/uL (0-0.05); Absolute Lymphocytes 0.9 10^3/uL (1.2-3.4); Absolute Monocytes 1.2 10^3/uL (0.1-0.6); Absolute Neutrophils 7.4 10^3/uL (1.4-6.5); Hemoglobin 7.9 g/dL (12.0-16.0); Mean Corp Hgb Conc. 31.6 g/dL (33.0-37.0); Mean Corpuscular Hgb 26.1 pg (27.0-31.0); Mean Corpuscular Volume 82.5 fL (81.0-99.0); Mean Platelet Volume 11.3 fL (7.4-10.4); Nucleated Red Blood Cells % 0 %; Platelet Count 188 10^3/uL (130-400); Red Blood Cell Count 3.03 10^6/uL (4.20-5.40); Red Cell Dist. Width 15.4 % (11.5-14.5); White Blood Cell Count 9.8 10^3/uL (4.8-10.8)
[2024-06-26 07:23] LABS: Blood Urea Nitrogen 18 mg/dl (7-17); Calcium 9.5 mg/dl (8.4-10.2); Carbon Dioxide 28 mmol/L (22-30); Chloride 105 mmol/L (98-107); Estimated Creatinine Clearance 49 ml/min; Glucose 78 mg/dl (70-99); Potassium 3.9 mmol/L (3.5-5.1); Sodium 140 mmol/L (135-145); eGFR > 60.00
[2024-06-26 07:50] VITALS: BP 112/48
[2024-06-26] MEDS: SENOKOT-S 1 TABLET PO (09:05)
[2024-06-26] MEDS: TOPROL XL 100 MG PO (09:05)
[2024-06-26] MEDS: MIRALAX 17 GRAMS PO (09:05)
[2024-06-26] MEDS: VITAMIN B-12 1000 MCG PO (09:06)
[2024-06-26] MEDS: XARELTO 20 MG PO (09:06)
[2024-06-26] MEDS: ZYLOPRIM 100 MG PO (09:06)
[2024-06-26] MEDS: DESENEX/MITRAZOL/ZEASORB 1 APPLIC TOPICAL (09:07)
--- NOTE | 2024-06-26 09:51 | W.PN.CARDCBS ---
Today's Communication / Plan
-
No complaints currently. Discussed with her daughter at the bedside.
Blood pressure stable with holding lisinopril/hydrochlorothiazide. Continue off of these medications to be reassessed by primary care physician as an outpatient.
Continue beta-ronda and Xarelto.
Follow-up with family physician and usual snow technician. (Dr. Riggs)
Defer anemia to primary service.
Syncope likely secondary to dehydration and anemia. Telemetry stable.
We will sign off. Please reconsult us if new symptoms develop.
Impression / Plan
-
PCP:Jesus Alberto Merchant MD
Boning Room Worker: Adalid Riggs MD
Impression:
syncope, presented to ED 06/23/24
hypotension
permanent atrial fibrillation (on Xarelto)
anemia, Hgb 8.1 06/24/24, 7.9 06/25/24
elevated creatinine-not clear if FRANNIE vs CKD, but improving, 1.1 06/25/24
HTN
gout-recently treated with steroids, allopurinol, colchicine
COVID- 10/21- 1 week hospitalization at [place]
breast CA s/p lumpectomy and radiation 2013
Echo 12/01/14: nl LV size and fxn, EF 55-60%, nl RV size and fxn, mild dil LA, mild-mod MR, mild TR, PAP 41-46
Echo fall 2021 at [facility] - normal LV fxn EF 60-65%, mod MR, mild-mod TR, RVSP 50-55, mild AI
ECHO 06/24/24: EF60-65%, mild-mod MR, mild-mod TR
Plan:
Stable at the current time. Blood pressure stable today. Discussed with patient and her daughter at the bedside. Continue to hold lisinopril and hydrochlorothiazide and can be reassessed as an outpatient.
She is status post hydration and also IV iron.
Telemetry remained stable with atrial fibrillation rate controlled.
Defer anemia and dehydration to primary service.
Creatinine stable and could be followed by primary care physician as an outpatient. They will make an appointment to see primary care physician in the next week or 2.
83 year old female with PMH permanent atrial fibrillation (on Xarelto), HTN, gout, breast CA s/p lumpectomy and radiation, who presents to the ER following a witnessed syncopal episode. She was sitting at a table talking to her grandson when she
was noted to become unresponsive, lasting 3-4 minutes. She gradually regained consciousness after family tapped on her. There was no seizure-like activity and no fall. She had no recollection of the event. She had one episode of nonbloody
vomiting as well one episode of diarrhea. On arrival to the ED she was noted to be hypotensive, BP 91/58. ER evaluation: troponin <0.012 x 4 readings, Hgb initially 9.0, repeat 8.1, creat 1.2.
Progress Note - Boning Room Worker
Subjective
Date of Service: June 26, 2024
No complaints currently. Denies chest pain.
Objective
Labs:
06/26/24 06:06
06/26/24 06:06
Labs
Hgb 7.9 g/dL (12.0-16.0) L 06/26/24 06:06
Hct 25.0 % (37.0-47.0) L 06/26/24 06:06
Plt Count 188 10^3/uL (130-400) 06/26/24 06:06
Sodium 140 mmol/L (135-145) 06/26/24 06:06
Potassium 3.9 mmol/L (3.5-5.1) 06/26/24 06:06
BUN 18 mg/dl (7-17) H 06/26/24 06:06
Creatinine 0.9 mg/dL (0.6-1.0) 06/26/24 06:06
Glucose 78 mg/dl (70-99) 06/26/24 06:06
Troponins
0806/23/24 06/24/24
18:25 21:35 00:31
Troponin I < 0.012 < 0.012 0.012
06/24/24 06/24/24
06:33 11:58
Troponin I < 0.012 Cancelled
Vital Signs and I&O:
Vital Signs
Temp Pulse Resp BP Pulse Ox
98.4 F 91 17 112/48 94
06/26/24 07:50 06/26/24 09:05 06/26/24 07:50 06/26/24 09:05 06/26/24 07:50
Vital Signs
Temp Pulse Resp BP Pulse Ox
98.4 F 91 17 112/48 94
06/26/24 07:50 06/26/24 09:05 06/26/24 07:50 06/26/24 09:05 06/26/24 07:50
Intake & Output
06/24/24 06/25/24 06/26/24 06/27/24
06:59 06:59 06:59 06:59
Intake Total 240 / 240 1939 600 / 600
Output Total 400 / 400
Balance 240 / 240 1939 200 / 200
Physical Exam
Physical Exam
General: Well developed, well nourished in NAD.
Heart: Irregularly irregular RR, no murmurs, No S3, S4, no rubs.
Extremities: No clubbing, cyanosis or edema bilaterally.
Neuro: Grossly nonfocal, awake, alert and oriented x3.
--- NOTE | 2024-06-26 10:24 | W.PN.HOSP.TC ---
Today's Communication/Plan
-
dc home
dc acei
op cbc
Assessment / Plan
Assessment / Plan
83-year-old female presented to the hospital after a witnessed syncopal episode, possibly related to vasovagal and dehydration while other causes including arrhythmia specially in the midst of the A-fib need to be considered.
Syncope, likely vasovagal and dehydration
Cardiac monitoring
Orthostatic vital sign check and found to be negative.
Troponin negative.
Telemetry stable
Echocardiogram noted.
Blood pressure stabilization status post aggressive IV fluid resuscitation and lisinopril discontinuation.
Appreciate cardiology recs
Normocytic anemia
She is on Xarelto
Denies any melanotic or blood in stool or urine. Per patient she was heme tested and found to be negative. No documentation.
Iron panel found to be low. Start IV iron. B12 level low and started on supplementation.
Further workup can be managed and follow-up as outpatient unless with significant drop.
Hemoglobin at 9.9 and remained stable status post IV fluid resuscitation.
Recommend repeat CBC with primary doctor. Family agreed.
History of A-fib:
Rate controlled
Continue with Toprol. Blood pressure stable this morning.
Monitor heart rate
Continue Xarelto.
FRANNIE likely secondary dehydration in setting of lisinopril
Creatinine down trended to 0.9.
Gout: Recently had a attack and was given a week course of prednisone and on allopurinol and colchicine,
Allopurinol 100 daily
No evidence of acute gout currently. Colchicine discontinued and patient does not want to take it
All discussed with the patient and the family in detail and expressed understanding
CODE STATUS full code
DVT prophylaxis is Xarelto
Discussed extensively with patient daughter at bedside in detail.
PT/OT home health
More than 30 minutes spent in discharge including
Final examination of the patient
Summarizing hospital stay
Instructions for continuing care to all relevant caregivers
Preparation of discharge records, prescriptions, and referral forms
Total time spent (in minutes): 53
Anticipated Discharge: Today
Subjective/Interval History
-
Date of Service: June 26, 2024
Feeling a lot better.
Denies lightheaded or dizziness
Denies chest pain
States she was heme checked yesterday and was found to be negative
Denies any abdominal pain cramps or bright red blood per the rectum
Objective Data
-
Labs:
Laboratory Results
06/26/24
06:06
WBC 9.8
Hgb 7.9 L
Hct 25.0 L
Plt Count 188
Sodium 140
Potassium 3.9
Chloride 105
Carbon Dioxide 28
BUN 18 H
Creatinine 0.9
Glucose 78
Calcium 9.5
Vital Signs:
Vital Signs
Temp Pulse Resp BP Pulse Ox
98.4 F 91 17 112/48 94
06/26/24 07:50 06/26/24 09:05 06/26/24 07:50 06/26/24 09:05 06/26/24 07:50
I&O
06/25/24 06/26/24 06/27/24
06:59 06:59 06:59
Intake Total 1939 600 / 600
Output Total 400 / 400
Balance 1939 200 / 200
Physical Exam
-
General: Well Developed and No Apparent Distress
HEENT: Normocephalic, Atraumatic and Moist Mucous Membranes
Respiratory: Clear to Auscultation
Cardiac: Regular Rhythm and S1/S2; Negative Murmur, Rub or Gallop
GI: Soft, Nontender, Nondistended and Normal Bowel Sounds; Negative Organomegaly
Rectal: Deferred by Provider
Musculoskeletal: No Clubbing, No Cyanosis and No Edema
Skin: Negative Rash
Neuro: Awake, AO x 3, No Motor Deficits and Nonfocal/Grossly Intact
Psych: Calm
--- NOTE | 2024-06-26 10:33 | W.DCSUMMARY ---
Discharge Summary
Discharge Data
Date of Admission: 06/26/24
Date of Discharge: 06/26/24
-
Pending Results: No
Hospital Course
83 female past medical history of atrial fibrillation, anemia, gout, primary hypertension who is presenting from home with episode of syncope. Patient was sitting down during episode of syncope. Patient had episode of nausea and vomiting post
syncopal episode. In the ER patient was found to be hypotensive and started on IV fluid. Troponins were checked and found to be negative. Telemetry without any significant arrhythmias. Cardiology was consulted. Patient was found to the elevated
creatinine 1.2 on admission. Patient with hypotension lisinopril was discontinued. Patient blood pressure improved significantly with IV fluid resuscitation. Orthostatics were found to be negative. Echocardiogram with EF of 60 to 65%. Diastolic
function indeterminant. Mild to moderate mitral regurgitation. Trace aortic regurgitation. Mild to moderate tricuspid regurgitation. Compared to echo November 2014 without much significant change. Right ventricle is dilated and patient is now
in A-fib. Patient was continued on Toprol 100 mg and heart rate was well-controlled. Patient was also found to have severe iron deficiency anemia and also with B12 deficiency anemia. Patient received IV iron and was transitioned to p.o. iron at
discharge. Recommended to repeat CBC in 7 to 10 days with primary doctor. Patient was also ordered PT and OT. Hospitalization was discussed with patient daughter on daily basis.
Discharge Plan
-
Patient Disposition: Home with Home Care
Discharge Diagnosis/Procedures: Syncope likely secondary to vasovagal secondary dehydration and hypotension
Condition: Fair
Diet: Regular
Activity: With assistance and As tolerated
Driving Restrictions: As prior to admission
Blood Work: CBC in 7 to 10 days with primary doctor.
Other Services: VN
Referrals:
Jesus Alberto Merchant DO [Family Provider] - in less than 1 week
Additional Discharge Medication Instructions: Lisinopril has been discontinued.
Prescriptions:
New
cyanocobalamin (vitamin B-12) 1,000 mcg Tablet
1,000 mcg PO DAILY 30 Days Qty: 30 0RF
ferrous sulfate 325 mg (65 mg iron) tablet
325 mg PO DAILY Qty: 30 0RF
Continued
metoprolol succinate 100 MG tablet extended release 24 hr
100 mg PO DAILY
allopurinol 100 MG tablet
100 mg PO DAILY
Xarelto 20 MG tablet
20 mg PO DAILY
Discontinued
lisinopril 20 MG tablet
20 mg PO DAILY
Discharge Orders:
Discharge Patient (As Directed); Ordered 06/26/24
Ordered By: Rojelio Martell
Discharge Date and Time
Discharge Date/Time: 06/26/24 12:17
Print Language: FAROESE
--- NOTE | 2024-06-26 11:26 | CM ---
Patient has switched to inpatient and IMM provided and explained to patient, signed, placed on chart, patient is for discharge to home today with family supports and [facility] visiting nurses.
Plan; Home with [facility] visiting nurses.
[facility]
[phone]
[2024-06-26 11:45] VITALS: BP 103/59
== END 2024-06-26 12:17 | disposition home health service (06) | DRG 683 ==
LOC: 4 WEST ACU 09:27
PROVIDERS: Emergency Medicine; Nurse Practitioner; ADMITTING PHYSICIAN Internal Medicine; ATTENDING PHYSICIAN Hospitalist; EMERGENCY PHYSICIAN Student in an Organized Health Care Education/Training Program; FAMILY PHYSICIAN Family Medicine; OTHER PHYSICIAN Internal Medicine Cardiovascular Disease
DX: N17.9 Acute kidney failure, unspecified (principal); I48.21 Permanent atrial fibrillation; E86.0 Dehydration; Z79.01 Long term (current) use of anticoagulants; M10.9 Gout, unspecified; I10 Essential (primary) hypertension; D50.9 Iron deficiency anemia, unspecified; D51.9 Vitamin B12 deficiency anemia, unspecified; I95.9 Hypotension, unspecified; Z11.52 Encounter for screening for COVID-19
CPT/HCPCS: 70450; 80048; 80053; 81003; 81015; 82607; 82728; 83540; 83550; 83735; 84443; 84484; 85025; 85027; 87811; 93005; 93306; 96360; 97116; 97162; 97165; 99285; J2916